=== PATIENT | male | born 2000 | race Hispanic/Latino ===

== ENCOUNTER 2022-01-20 07:59 | Emergency (ER) | payer MEDICAID, MEDICARE ==
[~2022-01-20] VITALS: Ht 180.3 cm; Wt 122.5 kg
[2022-01-20] MEDS ORDERED: PHEN118S62 MM (09:26)
[2022-01-20] MEDS ORDERED: OSEL75 PO (09:27)
[2022-01-20 09:33] VITALS: BP 121/69
== END 2022-01-20 09:41 | disposition home or self-care (01) ==
LOC: EDH 07:59
DX: J11.1 Influenza due to unidentified influenza virus with other respiratory manifestations (principal)

== ENCOUNTER 2024-03-15 01:26 | Emergency (ER) | payer SELFPAY ==
[~2024-03-15] VITALS: Ht 182.9 cm; Wt 136.1 kg
[~2024-03-15 01:26] MED LIST: OSEL75 PO; PHEN118S62 MM
[2024-03-15 01:28] VITALS: TEMP 97.9
--- NOTE | 2024-03-15 01:48 | HMCIMG ---
CHEST 1VW HISTORY: Chest pain COMPARISON: None FINDINGS: A frontal projection of the chest was obtained. No acute pulmonary infiltrates is seen. The heart is normal in size. Prominent interstitial markings are seen. No evidence of aortic calcification is seen. IMPRESSION: 1. No acute pulmonary infiltrate is seen.
--- NOTE | 2024-03-15 01:52 | ERN ---
ED Note History of Present Illness Stated Complaint: PALPITATIONS, SOB, CP Chief Complaint: Chest Pain Time Seen by MD: 01:30 Time Seen by Midlevel: 01:35 Dictation: 23-year-old male coming in complaining of an episode of sharp pain after smoking some marijuana. Patient states he does not have any chest pain right now it has resolved. Patient denies having any medical or surgical history. Patient also admits to have done some cocaine on evening. And states today he drank 125 oz beer. Allergies: Coded Allergies: No Known Allergies (Unverified Allergy, Unknown, 01/20/22) Home Meds Active Scripts Oseltamivir Phosphate (Tamiflu) 75 Mg Cap, 75 MG PO BID, #10 CAP Prov:BENJA YOUNG MD 01/20/22 Phenol/Glycerin (Chloraseptic Max 1.5-33% [place]) 118 Ml [place], 118 ML MM 5X/DAY, #1 BOTTLE Prov:BENJA YOUNG MD 01/20/22 Past Medical History Past Medical History: No Pertinent History Surgical History: None Social History: Negative Review of System Dictation Constitutional: Negative for fever,chills, and weight loss Eyes: Negative for injury, pain,redness, and discharge ENT: Negative for injury,pain or swelling Cardiovascular: Negative for chest pain, palpitations, and edema Respiratory: Negative for shortness of breath, cough, and wheezing, Abdomen/GI: Negative for abdominal pain, nausea, vomiting, diarrhea, and con stipation Back: Negative for injury and pain : Negative for injury, bleeding and discharge MS/Extremity: Negative for injury and deformity Skin: Negative for rash, and discoloration Neuro: Negative for headache, weakness, numbness, tingling, and seizure Psych: Negative for suicide ideation, homicidal ideation, and hallucinations Review of Systems: was completed Initial Vital Sign VS Vital Signs Date Time Temp Pulse Resp B/P (MAP) Pulse Ox O2 Delivery O2 Flow Rate FiO2 03/15/24 01:28 97.9 127 20 173/115 98 Room Air 03/15/24 02:08 0 21 Physical Exam Dictation General: awake, alert, NAD Head/Face: Normocephalic, atraumatic Eyes: PERRL, EOMI, vision at baseline ENT: oral cavity clear, TMs clear, no signs of infection Neck: Trachea midline, supple, no nuchal rigidity Cardiovascular: RRR, normal S1/S2, No MRGs, no JVD Respiratory: CTAB, no respiratory distress, No rales or wheezes Abdomen: Soft, non-tender, non-distended, normal bowel sounds, no guarding or rebound. Skin: Warm, dry, normal turgor, no rash MS/Extremity: Pulses equal, no cyanosis, neurovascular intact, FROM Neuro: COAx4, GCS 15, strength 5/5, CN 2-12 intact, normal cerebellar exam, normal gait, Psych: Normal behavior, mood, and affect normal Results (Laboratory/Radiology) Laboratory/Radiology Laboratory Tests Test 03/15/24 01:51 White Blood Count 9.8 K/uL (4.8-10.8) Red Blood Count 5.17 MIL/uL (4.50-6.20) Hemoglobin 15.0 g/dL (14.0-18.0) Hematocrit 45.8 % (42-54) Mean Corpuscular Volume 88.6 fL (79-99) Mean Corpuscular Hemoglobin 29.0 pg (27.0-33.0) Mean Corpuscular Hemoglobin Concent 32.8 g/dL (32.0-36.0) Red Cell Distribution Width 13.6 % (11.0-15.5) Platelet Count 218 K/uL (130-400) Mean Platelet Volume 12.7 fL (7.5-10.5) H Immature Granulocyte % (Auto) 0.5 % (0-1) Neutrophils (%) (Auto) 63.2 % (40.0-77.0) Lymphocytes (%) (Auto) 24.2 % (21.0-51.0) Monocytes (%) (Auto) 8.8 % (3.0-13.0) Eosinophils (%) (Auto) 2.6 % (0.0-8.0) Basophils (%) (Auto) 0.7 % (0.0-5.0) Neutrophils # (Auto) 6.2 K/uL (1.8-7.7) Lymphocytes # (Auto) 2.4 K/uL (1.0-4.8) Monocytes # (Auto) 0.9 K/uL (0.1-1.0) Eosinophils # (Auto) 0.25 K/uL (0.00-0.70) Basophils # (Auto) 0.07 K/uL (0.00-0.20) Absolute Immature Granulocyte (auto 0.05 K/uL (0-1) Nucleated Red Blood Cells 0.0 % (0.0-0.19) Urine Color COLORLESS (YELLOW) Urine Appearance CLEAR (CLEAR) Urine pH 6.0 (5.0-8.0) Urine Specific [place] 1.002 (1.001-1.031) Urine Protein NEGATIVE mg/dL (NEGATIVE) Urine Glucose (UA) NEGATIVE mg/dL (NEGATIVE) Urine Ketones NEGATIVE mg/dL (NEGATIVE) Urine Occult Blood NEGATIVE (NEGATIVE) Urine Nitrate NEGATIVE (NEGATIVE) Urine Bilirubin NEGATIVE mg/dL (NEGATIVE) Urine Urobilinogen 0.2 mg/dL (0.2-1.0) Urine Leukocyte Esterase NEGATIVE Jack/uL Sodium Level 138 mmol/L (136-145) Potassium Level 3.3 mmol/L (3.5-5.1) L Chloride Level 101 mmol/L (101-111) Carbon Dioxide Level 31 mmol/L (21-32) Blood Urea Nitrogen 12 mg/dL (7-18) Creatinine 1.1 mg/dL (0.5-1.3) Glomerular Filtration Rate Calc 96 mL/min (>90) Random Glucose 100 mg/dL (70-105) Total Calcium 9.4 mg/dL (8.5-10.1) Magnesium Level 2.10 mg/dL (1.80-2.40) Total Creatine Kinase 208 U/L (21-232) Troponin I High Sensitivity 34 ng/L (4-75) B-Type Natriuretic Peptide 15 pg/mL (0-100) Urine Opiates Screen NEGATIVE (NEGATIVE) Urine Barbiturates Screen NEGATIVE (NEGATIVE) Urine Phencyclidine Screen NEGATIVE (NEGATIVE) Urine Amphetamines Screen NEGATIVE (NEGATIVE) Urine Benzodiazepines Screen NEGATIVE (NEGATIVE) Urine Cocaine Screen POSITIVE (NEGATIVE) H Urine Marijuana (THC) Screen POSITIVE (NEGATIVE) H Labs Reviewed?: Yes EKG Comment: Date:03/15/24 Time:137 Ventricular rate:83 VT interval:155 QRS duration:47 QT/QTc:338/398 EKG interpretation: Sinus rhythm, probable lateral infarct, old Reviewed by ED Attending no STEMI. X-RAY Comment: [place] [id number] [id number] IMAGING REPORT Signed PATIENT: FABIANA KEARNEY MR#: [id number] : 2000 SEX: M AGE: 23 LOCATION: [facility] ORDER 8 STATUS: REG ER REPORT#: [id number] SERVICE 7 REASON: CHEST PAIN ORDERING PHYSICIAN: MALICK SHIRLEY MD PROCEDURE: CXR1VW - CHEST 1VW CHEST 1VW HISTORY: Chest pain COMPARISON: None FINDINGS: A frontal projection of the chest was obtained. No acute pulmonary infiltrates is seen. The heart is normal in size. Prominent interstitial markings are seen. No evidence of aortic calcification is seen. IMPRESSION: 1. No acute pulmonary infiltrate is seen. DICTATED BY: LORENA SADLER MD DATE: 03/15/24144 ELECTRONICALLY SIGNED BY: LORENA SADLER MD DATE: 03/15/24147 ED Course ED Course Orders Procedure Category Date Status Time Vital Signs Per CPOE 03/15/24 Transmitted Routine 01:28 B-Type Natriuretic LAB 03/15/24 Complete Peptide 01:28 Chest 1vw RAD 03/15/24 Resulted 01:28 12 Lead Ekg Tracing- EKG 03/15/24 Logged Technical 01:28 Oxygen By Nc/Pulse Ox CPOE 03/15/24 Transmitted 01:28 Maintain Iv CPOE 03/15/24 Transmitted 01:28 Iv Insertion CPOE 03/15/24 Transmitted 01:28 Cardiac Monitoring CPOE 03/15/24 Transmitted 01:28 Pulse Oximetry With CPOE 03/15/24 Transmitted Vs And Prn 01:28 Cbc With Differential LAB 03/15/24 Complete 01:28 Activity: Br W/Brp CPOE 03/15/24 Transmitted With Assist 01:28 Creatine Kinase, Total LAB 03/15/24 Complete 01:28 Urinalysis Profile LAB 03/15/24 Complete 01:28 Troponin Poc Order LAB 03/15/24 Complete Only 01:28 Bedside Troponin-I LAB.ER 03/15/24 In Process (Poc) 01:28 Basic Metabolic Panel LAB 03/15/24 Complete 01:28 Troponin I High LAB 03/15/24 Complete Sensitivity 01:28 Magnesium LAB 03/15/24 Complete 01:28 Drug Screen Urine LAB 03/15/24 Complete 01:28 Vital Signs Date Time Temp Pulse Resp B/P (MAP) Pulse Ox O2 Delivery O2 Flow Rate FiO2 03/15/24 02:08 83 16 135/75 99 Room Air* 0 21 03/15/24 01:28 97.9 127 20 173/115 98 Room Air HEART Score Response (Comments) Value History: Low suspicion (0) 0 EKG: Normal 0 Age: < 45yrs (0) 0 Risk Factors: No known risk factors (0) 0 Initial Troponin: Normal limit (0) 0 Total 0 Medical Decision Making MDM MDM: 23-year-old male coming in complaining of an episode of sharp pain after smoking some marijuana. Patient states he does not have any chest pain right now it has resolved. Patient denies having any medical or surgical history. Patient also admits to have done some cocaine on evening. And s tates today he drank 125 oz beer.CBC shows a leukocytosis, no anemia, no thrombocytopenia. Chemistry shows hypokalemia at 3.3. No other electrolyte abnormality. Normal kidney function. CK within normal range. Troponin is negative. BNP and within normal range. EKGs did not show any ST elevations or dysrhythmias. Chest x-ray shows no acute pulmonary pathology. Heart score is 0. Urine toxicology is positive for cocaine and marijuana. Discussed findings with the patient. Educated patient to stop the drug use as some of the marijuana could be laced with other medications and this could lead to cardiac complications. Patient verbalized understanding, answered all questions. Differential diagnosis: CS, atypical chest pain, costochondritis, drug abuse Rationale: Tests considered and ordered secondary to shared decision making include: Previous outside records reviewed: Old ER visits. Risk of complication and/or morbidity or mortality of patient management: None Medications-Per medication reconciliation Need for hospitalization: Patient does not meet criteria for hospitalization. Need for emergency major/minor surgery: No There are no social concerns with this patient. Prescription drug management Prescriptions will include symptomatic care Patient's prior external medical records from other ER visits were reviewed by me as indicated. Prior testing and results from previous visits were reviewed. Prior tests were taken into account with medical decision making and resource utilization, independent historian/historians were used to obtain complete medical history. I independently interpreted the test that were performed, results were reviewed by me and considered findings on radiology if ordered. Medical management and examination interpretation discussions were had by me with other qualified healthcare professionals as indicated for the patient's care. DX & DISP Disposition: Discharge Departure Impression: Primary Impression: Drug use Additional Impression: Chest pain, non-cardiac Condition: Stable Additional Instructions: Stop doing drugs. Follow up with their primary doctor in 1-2 days, return if symptoms worsen. Referrals: SELF,REFERRAL (PCP) Time of Disposition: 02:47 I have reviewed the case, and I agree with, Diagnosis and Plan ROSANGELA CLARK NP Mar 15, 2024 01:52
[2024-03-15 02:06] LABS: BASOPHILS # (AUTO) 0.07 K/uL (0.00-0.20); BASOPHILS % (AUTO) 0.7 % (0.0-5.0); EOSINOPHILS # (AUTO) 0.25 K/uL (0.00-0.70); EOSINOPHILS % (AUTO) 2.6 % (0.0-8.0); HEMATOCRIT 45.8 % (42-54); IMMATURE GRANULOCYTE ABSOLUTE 0.05 K/uL (0-1); LYMPHOCYTES # (AUTO) 2.4 K/uL (1.0-4.8); LYMPHOCYTES % (AUTO) 24.2 % (21.0-51.0); MEAN CORPUSCULAR HGB CONC 32.8 g/dL (32.0-36.0); MEAN CORPUSCULAR VOLUME 88.6 fL (79-99); MONOCYTES # (AUTO) 0.9 K/uL (0.1-1.0); MONOCYTES % (AUTO) 8.8 % (3.0-13.0); NEUTROPHILS # (AUTO) 6.2 K/uL (1.8-7.7); NEUTROPHILS % (AUTO) 63.2 % (40.0-77.0); PLATELET COUNT (AUTO) 218 K/uL (130-400); RED BLOOD CELL COUNT(AUTO) 5.17 MIL/uL (4.50-6.20); RED CELL DISTRIBUTION WIDTH 13.6 % (11.0-15.5); WHITE BLOOD COUNT (AUTO) 9.8 K/uL (4.8-10.8)
[2024-03-15 02:11] LABS: CREATININE 1.1 mg/dL (0.5-1.3); POTASSIUM 3.3 mmol/L (3.5-5.1)
[2024-03-15 02:16] LABS: APPEARANCE,URINE CLEAR (CLEAR); BILIRUBIN,URINE NEGATIVE (NEGATIVE); COLOR,URINE COLORLESS (YELLOW); GLUCOSE, URINE (UA) NEGATIVE (NEGATIVE); KETONES,URINE NEGATIVE (NEGATIVE); LEUKOCYTE ESTERASE ,URINE NEGATIVE Leu/uL (NEGATIVE); MAGNESIUM 2.1 mg/dL (1.80-2.40); NITRATE,URINE NEGATIVE (NEGATIVE); OCCULT BLOOD,URINE NEGATIVE (NEGATIVE); PROTEIN,URINE NEGATIVE (NEGATIVE); UROBILINOGEN,URINE 0.2 mg/dL (0.2-1.0)
[2024-03-15 02:23] LABS: ADD UA MICROSCOPIC NO; AMPHET/METH SCREEN,URINE NEGATIVE (NEGATIVE); BARBITURATE SCREEN, URINE NEGATIVE (NEGATIVE); BENZODIAZEPINES SCREEN,URINE NEGATIVE (NEGATIVE); CANNABINOID SCREEN,URINE POSITIVE (NEGATIVE); COCAINE SCREEN,URINE POSITIVE (NEGATIVE); OPIATE SCREEN,URINE NEGATIVE (NEGATIVE); PHENCYCLIDINE SCREEN,URINE NEGATIVE (NEGATIVE)
[2024-03-15 02:33] LABS: B-TYPE NATRIURETIC PEPTIDE 15 pg/mL (0-100)
[2024-03-15 02:50] VITALS: BP 134/73; PULSE 80; RESP 16; O2SAT 99
--- NOTE | 2024-03-15 19:54 | EKG ---
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
== END 2024-03-15 02:55 | disposition home or self-care (01) ==
LOC: EDH 01:26
DX: F12.90 Cannabis use, unspecified, uncomplicated (principal); R07.89 Other chest pain
CPT/HCPCS: 36415; 71045; 80048; 80305; 81003; 82550; 83735; 83880; 84484; 85025; 93005; 99285